=== PATIENT | female | born 1950 | race Caucasian/White ===

== ENCOUNTER 2017-12-08 09:47 | Emergency (ER) | payer OTHER ==
[~2017-12-08] VITALS: Ht 162.6 cm; Wt 63.5 kg
[2017-12-08] MEDS ORDERED: PRIMIDONE 50 MG TAB PO SCH (10:39)
== END 2017-12-08 10:52 | disposition home or self-care (01) ==
LOC: EDH 09:47
DX: R25.1 Tremor, unspecified (principal); K21.9 Gastro-esophageal reflux disease without esophagitis; Z88.6 Allergy status to analgesic agent; Z90.49 Acquired absence of other specified parts of digestive tract; Z98.890 Other specified postprocedural states; Z79.899 Other long term (current) drug therapy

== ENCOUNTER → 2018-12-09 | Outpatient (CLI) | payer OTHER ==
[~2018-12-09] MED LIST: GABA-529 PO; GADODIAMIDE 10 MMOL/20 ML VIAL IV ONE; LORAZEPAM 2 MG/ML 1 ML VIAL ONE; PANT40TA25 PO; PYRI100T2 PO; SACC250C3 PO; TRAZ-253 PO
--- NOTE | 2018-12-09 09:40 | NUR ---
MRI HEAD WITH CONTRAST AND CONSCIOUS SEDATION PATIENT TOLERATED PROCEDURE WELL. END OF EZAM AT 0900 AND PAITENT RECOVERED IN THE MRI SUITE. IV HEPLOCK REMOVED. DISCHARGE INSTRUCTIONS GIVEN AND PATIENT VERBALIZED UNDERSTANDING. DSCHARGED VIA W/C AT 0930.
== END | disposition home or self-care (01) ==
LOC: RAH 08:07
PROVIDERS: ATTEND Internal Medicine Critical Care Medicine
DX: R51 Headache (principal)
CPT/HCPCS: 70553; A9579; J2060; 99152; 99153

== ENCOUNTER → 2021-09-06 | Outpatient (CLI) | payer OTHER ==
[~2021-09-06] MED LIST changes: -GADODIAMIDE 10 MMOL/20 ML VIAL IV ONE; +GADOTERATE MEGLUMINE 10 MMOL/20 ML VIAL IV ONE; +GADOTERATE MEGLUMINE 5 MMOL/10 ML VIAL IV ONE; -LORAZEPAM 2 MG/ML 1 ML VIAL ONE; -PANT40TA25 PO; +PANT40TA54 PO; +PYRI100T10 PO; -PYRI100T2 PO
== END | disposition home or self-care (01) ==
LOC: RAH 07:39
PROVIDERS: ATTEND Internal Medicine Hematology & Oncology
DX: R51.9 Headache, unspecified (principal); C34.11 Malignant neoplasm of upper lobe, right bronchus or lung; D50.9 Iron deficiency anemia, unspecified
CPT/HCPCS: 70553; A9575

== ENCOUNTER → 2021-11-23 | Outpatient (CLI) | payer OTHER ==
[~2021-11-23] MED LIST changes: -GADOTERATE MEGLUMINE 10 MMOL/20 ML VIAL IV ONE; -GADOTERATE MEGLUMINE 5 MMOL/10 ML VIAL IV ONE; +IOHEXOL 350 MG/ML 100ML INFUS..BTL IV ONE
== END | disposition home or self-care (01) ==
LOC: RAH 09:01
PROVIDERS: ATTEND Internal Medicine Hematology & Oncology
DX: J90 Pleural effusion, not elsewhere classified (principal); J44.9 Chronic obstructive pulmonary disease, unspecified; C34.11 Malignant neoplasm of upper lobe, right bronchus or lung; D50.9 Iron deficiency anemia, unspecified; R11.2 Nausea with vomiting, unspecified; R91.8 Other nonspecific abnormal finding of lung field
CPT/HCPCS: 71270; 74178; Q9967